=== PATIENT | male | born 1935 | race Caucasian/White ===

== ENCOUNTER 2020-04-11 15:13 | Inpatient (IN) | payer MEDICARE, OTHER ==
[2020-04-11] MEDS ORDERED: NORMAL SALINE IV ONE (15:46)
[2020-04-11] MEDS ORDERED: DEXTROSE 5%-WATER 250 ML with NOREPINEPHRINE BITARTRATE 4 MG IV PRN ×4 (15:46→18:56)
[2020-04-11] MEDS ORDERED: CEFEPIME INJ 1 GM VIAL IM ONE (15:46)
[2020-04-11] MEDS ORDERED: VANCOMYCIN HCL INJ 1000 MG VIAL IV ONE (15:46)
--- NOTE | 2020-04-11 15:54 | ER Document Report ---
ED General - General Chief Complaint: Low Blood Pressure Stated Complaint: GENERAL WEAKNESS Time Seen by Provider: 04/11/20 15:34 Primary Care Provider: FAWN DOMINGO [NO LOCAL MD] - Follow up as needed TRAVEL OUTSIDE OF THE [place] 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 He complains of mild generalized weakness. Notes that he has had some loose stools earlier today. Denies any blood in stools. Initial BP per EMS was 70 systolic. They have administered 1 L of lactated Ringer's during transport. Patient denies any loss of consciousness. Denies any focal weakness. Denies nausea vomiting. Denies headache. Denies cough or shortness of breath. Denies chest pain or abdominal pain. He denies any specific injury. Patient lives with his . He has had a CABG in the past. He specifically denies any chest pain or palpitations today. He denies any history of thromboembolic disease. He denies any recent surgery or travel. He denies any recent treatment and antibiotics. - Related Data Allergies/Adverse Reactions: No Known Allergies Allergy (Verified 04/11/20 15:49) Home Medications: aspirin, metformin, jardiance, pravastatin, protonix, synthroid, tamsulosin, zyrtec, sulfamethoxazole, telmisartin Past Medical History - General Information source: Patient, Emergency Med Personnel, [facility] Records - Social History Smoking Status: Never Smoker Frequency of alcohol use: None Drug Abuse: None Family History: Reviewed & Not Pertinent - Past Medical History Cardiac Medical History: Reports: Hx Coronary Artery Disease, Hx Hypertension Denies: Hx Pulmonary Embolism Pulmonary Medical History: Reports: None Neurological Medical History: Reports: None Renal/ Medical History: Reports: None Malignancy Medical History: Reports None Musculoskeletal Medical History: Reports Hx Arthritis Psychiatric Medical History: Reports: None Traumatic Medical History: Reports: None Past Surgical History: Reports: Hx Open Heart Surgery - CABG many years ago, Hx Orthopedic Surgery - Remote history of left knee replacement Review of Systems - Review of Systems Notes: Constitutional: Negative for fever. HENT: Negative for sore throat. Eyes: Negative for visual changes. Cardiovascular: Negative for chest pain. Respiratory: Negative for shortness of breath. Gastrointestinal: As per HPI. Genitourinary: Negative for dysuria. Musculoskeletal: Negative for back pain. Skin: Chronic skin rash in groin area. Neurological: Negative for headaches, focal weakness or numbness. 10 point ROS negative except as marked above and in HPI. Physical Exam - Vital signs Vitals: Temp 98.1 F 04/11/20 15:13 BP rechecked by me is 79/63 right arm with automated cuff - Notes Notes: GENERAL: Elderly male who is awake and alert. SKIN: Pale and cool to touch. Patient has prominent intertrigo in the groin area bilaterally. HEAD: Normocephalic atraumatic. EYES: PERRLA. EOMI. Conjunctivae and sclerae clear. EARS: CANALS AND TMS CLEAR. NOSE: CLEAR. MOUTH: Moist mucosa. Good dentition. No stridor or edema. No drooling. NECK: Supple. Nontender no masses or thyromegaly. No adenopathy. Carotids 2+ without bruits. No JVD. BACK: Symmetrical without tenderness. CHEST: Respirations unlabored. Breath sounds clear and symmetrical. HEART: Healed CABG scar present. Regular rhythm. No murmur gallop or rub. ABDOMEN: Soft mildly obese nontender without masses, organomegaly or rebound. Bowel sounds normally active. No bruits. GENITALIA: Normal male. Patient is wearing a diaper. EXTREMITIES: No edema. No calf tenderness. Cap refill less than 2 seconds. Dorsalis pedis and posterior tibial pulses 1+ and symmetrical. NEUROLOGICAL: GCS 15. Alert and oriented x3. Fluent speech. Cranial nerves II through XII intact. Sensorimotor and cerebellar normal. Normal tone. PSYCHIATRIC: Appropriate affect. Course - Re-evaluation Re-evalutation: 04/11/20 17:43 Patient has findings of acute kidney injury and associated metabolic acidosis and critical hyperkalemia. We are treating his hyperkalemia with IV glucose and insulin and oral Kayexalate and IV calcium gluconate and bicarb. Case has been discussed with Dr. Bazzi from critical care unit and he is excepted for admission. - Vital Signs Vital signs: Temp Pulse Resp BP Pulse Ox 97.9 F 19 109/75 98 04/11/20 16:00 04/11/20 16:45 04/11/20 16:45 04/11/20 16:45 - Laboratory Result Diagrams: 04/11/20 15:30 04/11/20 15:30 Laboratory results interpreted by me: 04/11/20 04/11/20 04/11/20 15:30 15:30 15:30 WBC 13.4 H RBC 4.14 L Hgb 12.9 L RDW 14.5 H Absolute Neuts (auto) 10.4 H VBG pH 7.26 L VBG pCO2 31.8 L VBG HCO3 13.8 L Sodium 135.0 L Potassium 7.6 H* Chloride 109 H Carbon Dioxide 12 L BUN 90 H Creatinine 4.26 H Est GFR ( Amer) 16 L Est GFR (MDRD) Non-Af 13 L POC Glucose Lactic Acid 04/11/20 04/11/20 15:30 16:59 WBC RBC Hgb RDW Absolute Neuts (auto) VBG pH VBG pCO2 VBG HCO3 Sodium Potassium Chloride Carbon Dioxide BUN Creatinine Est GFR ( Amer) Est GFR (MDRD) Non-Af POC Glucose 124 H Lactic Acid 3.3 H - EKG Interpretation by Me Additional EKG results interpreted by me: 04/11/20 15:59 Twelve-lead EKG from 1530 hrs. is reviewed contemporaneously by me demonstrating a normal sinus rhythm with a rate of 81 and a QRS axis of 263 degrees. There is a first-degree AV block present and right bundle branch block is noted. No acute ST/T wave changes. There is no old tracing for comparison. QT interval is normal. Indication for current study: Hypotension. Critical Care Note - Critical Care Note Total time excluding time spent on procedures (mins): 105 - Sepsis protocol initiated. Findings consistent with acute kidney injury and hyperkalemia. Discharge - Discharge Clinical Impression: Sepsis, Acute kidney injury, Hyperkalemia Condition: Critical Disposition: ADMITTED INPATIENT Admitting Provider: Kervin (In Home Baby Sitter) Unit Admitted: ICU Referrals: FAWN DOMINGO [NO LOCAL MD] - Follow up as needed
[2020-04-11] MEDS ORDERED: CEFEPIME 1 GM/D5W RTU 1 GM/50 ML RTUPB IV SCH (16:00)
[2020-04-11 16:02] LABS: VENOUS BLOOD BASE EXCESS -12.1 mmol/L; VENOUS BLOOD HCO3 13.8 mmol/L (20-32); VENOUS BLOOD PCO2 31.8 mmHg (35-63); VENOUS BLOOD PH 7.26 (7.30-7.42)
[2020-04-11 16:08] LABS: PROTHROMBIN TIME 15.3 SEC (11.4-15.4)
[2020-04-11] MEDS ORDERED: NOREPINEPHRINE BITARTRATE INJ/PF 4 MG/4 ML SDV IV ONE (16:10)
--- NOTE | 2020-04-11 16:15 | RADIOLOGY REPORT (SQ) ---
EXAM DESCRIPTION: CHEST SINGLE VIEW IMAGES COMPLETED DATE/TIME: 04/11/2020 4:06 pm REASON FOR STUDY: hyotension COMPARISON: None. NUMBER OF VIEWS: One view. TECHNIQUE: Single frontal radiographic view of the chest acquired. LIMITATIONS: Expiratory lung volumes. FINDINGS: LUNGS AND PLEURA: No pneumothorax. No consolidation or significant pleural effusion. MEDIASTINUM AND HILAR STRUCTURES: Contour within normal limits for technique and lung volume. HEART AND VASCULAR STRUCTURES: Heart upper limits of normal in size. Normal vasculature. Prior CABG. BONES: No acute findings. HARDWARE: CABG hardware. OTHER: No other significant finding. IMPRESSION: No acute findings identified.Expiratory lung volumes. TECHNICAL DOCUMENTATION: JOB ID: [id number] [place]-72 2010 [employer]- All Rights Reserved Reading location - IP/workstation name: [email or web address]
[2020-04-11 16:30] LABS: CREATINE KINASE MB 2.37 ng/mL (<4.55)
[2020-04-11 16:34] LABS: TROPONIN I 0.075 ng/mL
[2020-04-11 17:09] LABS: ABSOLUTE BASOPHILS # (AUTO) 0.1 10^3/uL (0.0-0.2); ABSOLUTE EOSINOPHILS # (AUTO) 0.1 10^3/uL (0.0-0.6); ABSOLUTE LYMPHOCYTES (AUTO) 2.1 10^3/uL (0.5-4.7); ABSOLUTE MONOCYTES (AUTO) 0.7 10^3/uL (0.1-1.4); ABSOLUTE NEUT (AUTO) 10.4 10^3/uL (1.7-8.2); BASOPHILS % (AUTO) 0.5 % (0-2); EOSINOPHILS % (AUTO) 0.7 % (0-6); HEMATOCRIT 39.5 % (37.9-51.0); HEMOGLOBIN 12.9 g/dL (13.5-17.0); LYMPHOCYTES % (AUTO) 15.3 % (13-45); MEAN CORPUSCULAR HEMOGLOBIN 31.1 pg (27.0-33.4); MEAN CORPUSCULAR HGB CONC 32.5 g/dL (32.0-36.0); MEAN CORPUSCULAR VOLUME 96 fl (80-97); MONOCYTES % (AUTO) 5.6 % (3-13); PLATELET COUNT 309 10^3/uL (150-450); RED BLOOD COUNT 4.14 10^6/uL (4.35-5.55); RED CELL DISTRIBUTION WIDTH 14.5 % (11.5-14.0); SEGMENTED NEUTROPHILS % (AUTO) 77.9 % (42-78); TOTAL CELLS COUNTED % (AUTO) 100 %; WHITE BLOOD COUNT 13.4 10^3/uL (4.0-10.5)
[2020-04-11 17:15] LABS: ALKALINE PHOSPHATASE 69 U/L (38-126); ANION GAP 14 (5-19); ASPARTATE AMINO TRANSFERASE 20 U/L (17-59); BILIRUBIN,DIRECT 0.2 mg/dL (0.0-0.4); BILIRUBIN,TOTAL 0.8 mg/dL (0.2-1.3); BLOOD UREA NITROGEN 90 mg/dL (7-20); CALCIUM 9.5 mg/dL (8.4-10.2); CARBON DIOXIDE 12 mmol/L (22-30); CHLORIDE 109 mmol/L (98-107); CREATINE KINASE 60 U/L (55-170); GLUCOSE 100 mg/dL (75-110); TOTAL PROTEIN 7.7 g/dL (6.3-8.2)
[2020-04-11 17:16] LABS: ALCOHOL < 10 mg/dL (NONE DETECTED)
[2020-04-11 17:19] LABS: POTASSIUM 7.6 mmol/L (3.6-5.0)
--- NOTE | 2020-04-11 17:20 | EKG REPORT ---
SEVERITY:- ABNORMAL ECG - SINUS OR ECTOPIC ATRIAL RHYTHM RIGHT BUNDLE BRANCH BLOCK : Confirmed by: Milla Pino MD 11-Apr-2020 17:20:00
[2020-04-11] MEDS ORDERED: DEXTROSE 50%-WATER 25 GM/50 ML DISP.SYRIN IV ONE (17:32)
[2020-04-11] MEDS ORDERED: CALCIUM GLUCONATE 1000 MG/10 ML INJ IV ONE (17:32)
[2020-04-11] MEDS ORDERED: INSULIN REG, HUMAN 100 UNIT/ML 3 ML VIAL (PYX) IV ONE (17:32)
[2020-04-11] MEDS ORDERED: SODIUM POLYSTYRENE SULFONATE 15 GM/60 ML PO ONE (17:32)
[2020-04-11 18:30] LABS: ANION GAP 11 (5-19); BLOOD UREA NITROGEN 88 mg/dL (7-20); CALCIUM 8.7 mg/dL (8.4-10.2); CARBON DIOXIDE 15 mmol/L (22-30); CHLORIDE 109 mmol/L (98-107); GLUCOSE 133 mg/dL (75-110)
[2020-04-11 18:33] LABS: POTASSIUM 7.1 mmol/L (3.6-5.0)
[2020-04-11 18:44] LABS: APPEARANCE,URINE TURBID; BILIRUBIN,URINE NEGATIVE (NEGATIVE); COLOR,URINE YELLOW; GLUCOSE, URINE 150 mg/dL (NEGATIVE); KETONES,URINE NEGATIVE (NEGATIVE); LEUKOCYTE ESTERASE,URINE LARGE (NEGATIVE); NITRITE,URINE NEGATIVE (NEGATIVE); PROTEIN,URINE 100 mg/dL (NEGATIVE); URINE SPECIFIC GRAVITY 1.011; UROBILINOGEN,URINE NEGATIVE mg/dL (<2.0)
[2020-04-11] MEDS ORDERED: ACETAMINOPHEN 325 MG TABLET PO PRN (18:48)
[2020-04-11] MEDS ORDERED: NORMAL SALINE 1000 ML 1,000 ML IV PRN (18:48)
--- NOTE | 2020-04-11 19:08 | RADIOLOGY REPORT (SQ) ---
EXAM DESCRIPTION: CT ABD/PELVIS NO ORAL OR IV IMAGES COMPLETED DATE/TIME: 04/11/2020 6:44 pm REASON FOR STUDY: EDELMIRA COMPARISON: None. TECHNIQUE: CT scan of the abdomen and pelvis performed without intravenous or oral contrast. Images reviewed with lung, soft tissue, and bone windows. Reconstructed coronal and sagittal MPR images revi ewed. All images stored on PACS. All CT scanners at this facility use dose modulation, iterative reconstruction, and/or weight based d osing when appropriate to reduce radiation dose to as low as reasonably achievable (ALARA). [facility]: Dose Right [facility]: CareDose [facility]: Dose Right [facility]: Teradose 4D [facility]: [employer] RADIATION DOSE: CT Rad equipment meets quality standard of care and radiation dose reduction techniq ues were employed. CTDIvol: 18.3 mGy. DLP: 1125 mGy-cm.mGy. LIMITATIONS: None. FINDINGS: LOWER CHEST: 1.4 cm nodule in the subpleural - anterior aspect of the right middle lobe. Mild basilar scarring -subsegmental atelectasis bilaterally. Prior CABG. NON-CONTRASTED LIVER, SPLEEN, ADRENALS: Evaluation limited by lack of IV contrast. No identified sign ificant masses. PANCREAS: No masses. No peripancreatic inflammatory changes. GALLBLADDER: No calcified stones. No inflammatory changes to suggest cholecystitis. RIGHT KIDNEY AND URETER: No cysts identified. 10 mm calcified stone in the upper pole parenchyma. Mi nimal hydronephrosis - hydroureter. LEFT KIDNEY AND URETER: No cysts identified. 5 mm calcified stone in the lower pole parenchyma. Mini mal hydronephrosis - hydroureter. AORTA AND RETROPERITONEUM: No aneurysm. No retroperitoneal masses or adenopathy. BOWEL AND PERITONEAL CAVITY: No obvious masses or inflammatory changes. No free fluid. APPENDIX: Not visualized. PELVIS, BLADDER, AND ABDOMINAL WALL:No free fluid. Mild thickening of the bladder wall. BONES: No acute findings. OTHER: No other significant finding. IMPRESSION: Mild thickening of the bladder wall.Minimal bilateral hydronephrosis - hydroureter. No calcified ureteral stones identified. The bilateral calcified nephrolithiasis. 1.4 cm nodule in the subpleural - anterior aspect of the right middle lobe. Mild basilar scarring -s ubsegmental atelectasis bilaterally. TECHNICAL DOCUMENTATION: JOB ID: [id number] [place]-72 Quality ID # [id number]: Final reports with documentation of one or more dose reduction techniques (e.g., Au tomated exposure control, adjustment of the mA and/or kV according to patient size, use of iterative reconstruction technique) 2010 [employer]- All Rights Reserved Reading location - IP/workstation name: [email or web address]
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
[2020-04-11] MEDS ORDERED: NORMAL SALINE 1000 ML 500 ML IV ONE ×2 (20:30→22:34)
[2020-04-11] MEDS ORDERED: CEFTRIAXONE SODIUM 1,000 MG in DEXTROSE 5%-WATER 100 ML IV SCH (22:00)
[2020-04-11 22:15] LABS: ALBUMIN 3.4 g/dL (3.5-5.0); ALKALINE PHOSPHATASE 71 U/L (38-126); ANION GAP 11 (5-19); ASPARTATE AMINO TRANSFERASE 15 U/L (17-59); BILIRUBIN,DIRECT 0.2 mg/dL (0.0-0.4); BILIRUBIN,TOTAL 0.7 mg/dL (0.2-1.3); BLOOD UREA NITROGEN 82 mg/dL (7-20); CALCIUM 8.9 mg/dL (8.4-10.2); CARBON DIOXIDE 11 mmol/L (22-30); CHLORIDE 115 mmol/L (98-107); GLUCOSE 74 mg/dL (75-110); TOTAL PROTEIN 6.7 g/dL (6.3-8.2)
[2020-04-11 22:24] LABS: POTASSIUM 5.6 mmol/L (3.6-5.0)
[2020-04-11] MEDS ORDERED: CEFTRIAXONE 1 GM/D5W RTU 1 GM/50 ML RTUPB IV ONE (22:26)
[2020-04-11] MEDS: 1/2 NORMAL SALINE 1,000 ML IV PRN (23:48)
[2020-04-12] MEDS ORDERED: LIDOCAINE 2% JELLY 5 ML TUBE TOP ONE (01:15)
[2020-04-12] MEDS ORDERED: LIDOCAINE 2% URO-JET 5 ML KIT MM ONE (02:36)
[2020-04-12 03:22] LABS: C DIFFICILE GDH NEGATIVE (NEGATIVE)
[2020-04-12 04:55] LABS: ABSOLUTE BASOPHILS # (AUTO) 0.1 10^3/uL (0.0-0.2); ABSOLUTE EOSINOPHILS # (AUTO) 0.2 10^3/uL (0.0-0.6); ABSOLUTE LYMPHOCYTES (AUTO) 2.1 10^3/uL (0.5-4.7); ABSOLUTE MONOCYTES (AUTO) 1.1 10^3/uL (0.1-1.4); ABSOLUTE NEUT (AUTO) 8.5 10^3/uL (1.7-8.2); BASOPHILS % (AUTO) 0.5 % (0-2); EOSINOPHILS % (AUTO) 1.3 % (0-6); LYMPHOCYTES % (AUTO) 17.8 % (13-45); MEAN CORPUSCULAR HEMOGLOBIN 31.6 pg (27.0-33.4); MEAN CORPUSCULAR HGB CONC 33.4 g/dL (32.0-36.0); MEAN CORPUSCULAR VOLUME 95 fl (80-97); MONOCYTES % (AUTO) 9.5 % (3-13); PLATELET COUNT 254 10^3/uL (150-450); RED BLOOD COUNT 4.11 10^6/uL (4.35-5.55); SEGMENTED NEUTROPHILS % (AUTO) 70.9 % (42-78); TOTAL CELLS COUNTED % (AUTO) 100 %
[2020-04-12] MEDS ORDERED: DIPHENOXYLATE HCL/ATROP SULF 2.5-0.025 MG TABLET PO ONE (05:15)
[2020-04-12 05:19] LABS: ALBUMIN 3.4 g/dL (3.5-5.0); ALKALINE PHOSPHATASE 71 U/L (38-126); ANION GAP 11 (5-19); ASPARTATE AMINO TRANSFERASE 16 U/L (17-59); BILIRUBIN,TOTAL 0.7 mg/dL (0.2-1.3); BLOOD UREA NITROGEN 79 mg/dL (7-20); CALCIUM 9.1 mg/dL (8.4-10.2); CARBON DIOXIDE 13 mmol/L (22-30); CHLORIDE 113 mmol/L (98-107); GLUCOSE 79 mg/dL (75-110); POTASSIUM 5.4 mmol/L (3.6-5.0)
[2020-04-12] MEDS: PANTOPRAZOLE SODIUM 40 MG TABLET.DR PO SCH (06:05)
[2020-04-12] MEDS: 1/2 NORMAL SALINE 1,000 ML IV PRN ×2 (07:33→18:11)
--- NOTE | 2020-04-12 08:53 | PDOC CRITICAL CARE PROG REPORT ---
General Date:: 04/12/20 ICU Day:: 2 Hospital Day:: 2 Resuscitation Status: Do Not Intubate Events in the past 12 to 24 Hours:: Off levophed, potassium lower, hypoadrenal. Reason for ICU Addmission:: Hypotension, hyperkalemia. - Medications: Medications reviewed and adjusted accordingly: Yes Vasopressors:: None, off levophed. Sedation:: None. Physical Exam Vital Signs: Temp Pulse Resp BP Pulse Ox 97.9 F 91 19 110/57 L 100 04/12/20 04:00 04/11/20 20:28 04/12/20 06:01 04/12/20 06:00 04/12/20 06:01 Intake & Output 04/11/20 04/12/20 04/13/20 06:59 06:59 06:59 Intake Total 4406 969 Output Total 1450 Balance 2956 969 Weight 101.9 kg Weight/Height Weight 101.9 kg Height 5 ft 6 in General appearance: PRESENT: no acute distress, hard of hearing, well-developed, well-nourished Head exam: PRESENT: atraumatic, normocephalic Eye exam: PRESENT: conjunctiva pink, EOMI, PERRLA. ABSENT: scleral icterus Ear exam: PRESENT: normal external ear exam Mouth exam: PRESENT: moist, tongue midline Respiratory exam: PRESENT: clear to auscultation chito. ABSENT: rales, rhonchi, wheezes Cardiovascular exam: PRESENT: RRR. ABSENT: diastolic murmur, rubs, systolic murmur GI/Abdominal exam: PRESENT: normal bowel sounds, soft. ABSENT: distended, guarding, mass, organolmegaly, rebound, tenderness Rectal exam: PRESENT: deferred Extremities exam: PRESENT: full ROM. ABSENT: calf tenderness, clubbing, pedal edema Musculoskeletal exam: PRESENT: normal inspection Neurological exam: PRESENT: alert, awake, oriented to person, oriented to place, oriented to time, oriented to situation, CN II-XII grossly intact. ABSENT: motor sensory deficit Psychiatric exam: PRESENT: appropriate affect, normal mood. ABSENT: homicidal ideation, suicidal ideation Skin exam: PRESENT: dry, intact, warm. ABSENT: cyanosis, rash Laboratory/Radiographs Laboratory Results: 04/12/20 04:25 04/12/20 04:25 04/11/20 04/11/20 04/11/20 15:30 15:30 15:30 WBC 13.4 H RBC 4.14 L Hgb 12.9 L Hct 39.5 MCV 96 MCH 31.1 MCHC 32.5 RDW 14.5 H Plt Count 309 Seg Neutrophils % 77.9 VBG pH 7.26 L VBG pCO2 31.8 L VBG HCO3 13.8 L VBG Base Excess -12.1 Sodium 135.0 L Potassium 7.6 H* Chloride 109 H Carbon Dioxide 12 L Anion Gap 14 BUN 90 H Creatinine 4.26 H Est GFR ( Amer) 16 L Glucose 100 Lactic Acid Calcium 9.5 Magnesium Total Bilirubin 0.8 AST 20 Alkaline Phosphatase 69 Total Protein 7.7 Albumin 4.0 TSH Urine Color Urine Appearance Urine pH Ur Specific [place] Urine Protein Urine Glucose (UA) Urine Ketones Urine Blood Urine Nitrite Ur Leukocyte Esterase Urine WBC (Auto) Urine RBC (Auto) Stool for White Cells 04/11/20 04/11/20 04/11/20 15:30 17:55 18:10 WBC RBC Hgb Hct MCV MCH MCHC RDW Plt Count Seg Neutrophils % VBG pH VBG pCO2 VBG HCO3 VBG Base Excess Sodium 134.6 L Potassium 7.1 H* Chloride 109 H Carbon Dioxide 15 L Anion Gap 11 BUN 88 H Creatinine 3.97 H Est GFR ( Amer) 18 L Glucose 133 H Lactic Acid 3.3 H Calcium 8.7 Magnesium Total Bilirubin AST Alkaline Phosphatase Total Protein Albumin TSH Urine Color YELLOW Urine Appearance TURBID Urine pH 5.0 Ur Specific [place] 1.011 Urine Protein 100 H Urine Glucose (UA) 150 H Urine Ketones NEGATIVE Urine Blood LARGE H Urine Nitrite NEGATIVE Ur Leukocyte Esterase LARGE H Urine WBC (Auto) >182 Urine RBC (Auto) >182 Stool for White Cells 04/11/20 04/11/20 04/11/20 18:56 21:40 21:40 WBC RBC Hgb Hct MCV MCH MCHC RDW Plt Count Seg Neutrophils % VBG pH VBG pCO2 VBG HCO3 VBG Base Excess Sodium 137.0 Potassium 5.6 H D Chloride 115 H Carbon Dioxide 11 L Anion Gap 11 BUN 82 H Creatinine 3.91 H Est GFR ( Amer) 18 L Glucose 74 L Lactic Acid 1.2 1.2 Calcium 8.9 Magnesium 1.8 Total Bilirubin 0.7 AST 15 L Alkaline Phosphatase 71 Total Protein 6.7 Albumin 3.4 L TSH Urine Color Urine Appearance Urine pH Ur Specific [place] Urine Protein Urine Glucose (UA) Urine Ketones Urine Blood Urine Nitrite Ur Leukocyte Esterase Urine WBC (Auto) Urine RBC (Auto) Stool for White Cells 04/11/20 04/11/20 04/12/20 21:40 22:00 04:25 WBC 12.0 H RBC 4.11 L Hgb 13.0 L Hct 39.0 MCV 95 MCH 31.6 MCHC 33.4 RDW 14.0 Plt Count 254 Seg Neutrophils % 70.9 VBG pH VBG pCO2 VBG HCO3 VBG Base Excess Sodium Potassium Chloride Carbon Dioxide Anion Gap BUN Creatinine Est GFR ( Amer) Glucose Lactic Acid Calcium Magnesium Total Bilirubin AST Alkaline Phosphatase Total Protein Albumin TSH 2.40 Urine Color Urine Appearance Urine pH Ur Specific [place] Urine Protein Urine Glucose (UA) Urine Ketones Urine Blood Urine Nitrite Ur Leukocyte Esterase Urine WBC (Auto) Urine RBC (Auto) Stool for White Cells NO WBCs SEEN 04/12/20 04:25 WBC RBC Hgb Hct MCV MCH MCHC RDW Plt Count Seg Neutrophils % VBG pH VBG pCO2 VBG HCO3 VBG Base Excess Sodium 137.2 Potassium 5.4 H Chloride 113 H Carbon Dioxide 13 L Anion Gap 11 BUN 79 H Creatinine 3.38 H Est GFR ( Amer) 21 L Glucose 79 Lactic Acid Calcium 9.1 Magnesium 1.8 Total Bilirubin 0.7 AST 16 L Alkaline Phosphatase 71 Total Protein 7.0 Albumin 3.4 L TSH Urine Color Urine Appearance Urine pH Ur Specific [place] Urine Protein Urine Glucose (UA) Urine Ketones Urine Blood Urine Nitrite Ur Leukocyte Esterase Urine WBC (Auto) Urine RBC (Auto) Stool for White Cells 04/11/20 04/11/20 04/11/20 15:30 15:30 21:40 Creatine Kinase 60 CK-MB (CK-2) 2.37 Troponin I 0.075 0.072 Impressions: Chest X-Ray 04/11/20 15:47 IMPRESSION: No acute findings identified.Expiratory lung volumes. Abdomen/Pelvis CT 04/11/20 17:34 IMPRESSION: Mild thickening of the bladder wall.Minimal bilateral hydronephrosis - hydroureter. No calcified ureteral stones identified. The bilateral calcified nephrolithiasis. 1.4 cm nodule in the subpleural - anterior aspect of the right middle lobe. Mild basilar scarring -subsegmental atelectasis bilaterally. EKG: SR, no peaked T-waves. All labs, radiographs, diagnostic studies and EKGs were personally reviewed: Yes In addition, reports of radiographic and diagnostic studies were read: Yes Assessment and Plan - Diagnosis (1) Hypovolemic shock Is this a current diagnosis for this admission?: Yes Plan: This was due to a combination of hypoadrenalism and hypovolemia from diarrhea and not drinking enough. Improved but not resolved. (2) Hypoadrenalism Is this a current diagnosis for this admission?: Yes Plan: With a cortisol of < 8, he needs supplementation at least short term. PO hydrocortisone ordered. (3) Acute renal failure (ARF) Qualifiers: Acute renal failure type: unspecified Qualified Code(s): N17.9 - Acute kidney failure, unspecified Is this a current diagnosis for this admission?: Yes Plan: GFR still only 17 with Cr improved from 4.3 to 3.4. For an 84 yo mas this is quite high. Will consult nephrology to follow. CT exam shows atrophied kidneys, likely chronic. (4) Diarrhea Qualifiers: Diarrhea type: unspecified type Qualified Code(s): R19.7 - Diarrhea, unspe cified Is this a current diagnosis for this admission?: Yes Plan: Cause not known. Cdif negative thus far. Other studies pending, lomotil ordered. (5) Hyperkalemia Is this a current diagnosis for this admission?: Yes Plan: Level still above 5 but quite improved. (6) Right bundle branch block Is this a current diagnosis for this admission?: Yes Plan: Probably chronic and not related to hyperkalemia. Plan Summary: Start PO hydrocortisone, consult nephrology and transfer from ICU if stable later today. Critical Time Critical Time (minutes): 35 Level of Care: ICU Anticipated discharge: Home with Homehealth Within: Other -: 1. The care of a critical patient is a dynamic process. This note is a service center representative synopsis but static in nature. The timeframe for treatments given in order is not necessarily the actual time these treatments may have been done. 2. This patient requires critical care secondary to ongoing requirements for therapy not offered or safe outside the critical care environment. Transfer to a lower level of care will result in altered life or limb morbidity and mortality. 3. Multidisciplinary rounds completed. 4. ABCDE bundle addressed.
[2020-04-12] MEDS: DIPHENOXYLATE HCL/ATROP SULF 2.5-0.025 MG TABLET PO SCH ×3 (10:00→17:18)
[2020-04-12] MEDS ORDERED: LOSARTAN POTASSIUM 50 MG TABLET PO SCH (10:00)
[2020-04-12] MEDS ORDERED: (PENDING PHARMACY ID) (Telmisartan [Telmisartan] 40 MG) PO SCH (10:00)
[2020-04-12] MEDS: HYDROCORTISONE 10 MG TABLET PO SCH ×2 (10:01→21:15)
--- NOTE | 2020-04-12 11:31 | CDI QUERY ---
CDI Query CDI Review: Dear Provider, Please document in progress notes and D/C summary if you agree with the clinical findings: ACUTE KIDNEY INJURY W/ ACUTE TUBULAR NECROSIS, improving? ACUTE KIDNEY INJURY ONLY? UNABLE TO DETERMINE Clinical findings: ACUTE KIDNEY INJURY HYPOVOLEMIC SHOCK Cr 4.26-3.38 BUN 90-79 IVF's Thanks, Chantell Steven [phone]
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
[2020-04-12] MEDS: SODIUM BICARBONATE 650 MG TABLET PO SCH ×2 (14:12→21:16)
[2020-04-12 15:37] LABS: ANION GAP 9 (5-19); BLOOD UREA NITROGEN 66 mg/dL (7-20); CARBON DIOXIDE 15 mmol/L (22-30); CHLORIDE 113 mmol/L (98-107); GLUCOSE 106 mg/dL (75-110); POTASSIUM 5.5 mmol/L (3.6-5.0)
--- NOTE | 2020-04-12 17:52 | EKG REPORT ---
SEVERITY:- ABNORMAL ECG - A-FLUTTER W/ PREDOM 2:1 AV BLOCK, A-RATE 250 RIGHT BUNDLE BRANCH BLOCK PROBABLE INFERIOR INFARCT, AGE INDETERMINATE : Confirmed by: David Ivan MD 12-Apr-2020 17:51:34
[2020-04-12] MEDS: CEFTRIAXONE 1 GM/D5W RTU 1 GM/50 ML RTUPB IV SCH (21:16)
[2020-04-13] MEDS: 1/2 NORMAL SALINE 1,000 ML IV PRN (02:15)
[2020-04-13 04:28] LABS: ANION GAP 7 (5-19); BLOOD UREA NITROGEN 56 mg/dL (7-20); CALCIUM 8.9 mg/dL (8.4-10.2); CARBON DIOXIDE 17 mmol/L (22-30); CHLORIDE 110 mmol/L (98-107); GLUCOSE 103 mg/dL (75-110); POTASSIUM 5.1 mmol/L (3.6-5.0)
[2020-04-13] MEDS: PANTOPRAZOLE SODIUM 40 MG TABLET.DR PO SCH (05:41)
[2020-04-13] MEDS: HYDROCORTISONE 10 MG TABLET PO SCH ×2 (10:00→21:49)
[2020-04-13] MEDS: SODIUM BICARBONATE 650 MG TABLET PO SCH ×2 (10:01→21:49)
--- NOTE | 2020-04-13 12:45 | PDOC CRITICAL CARE PROG REPORT ---
General Date:: 04/13/20 Hospital Day:: 2 Resuscitation Status: Do Not Intubate Events in the past 12 to 24 Hours:: Renal function improving, diarreah less. Review of systems relevant to events:: Renal, gi Reason for ICU Addmission:: Hypotension, hyperkalemia. All resolved. - Medications: Medications reviewed and adjusted accordingly: Yes Vasopressors:: None Sedation:: None Physical Exam Vital Signs: Temp Pulse Resp BP Pulse Ox 98.4 F 83 15 116/73 99 04/13/20 12:00 04/13/20 08:00 04/13/20 10:01 04/13/20 10:01 04/13/20 10:01 Intake & Output 04/12/20 04/13/20 04/14/20 06:59 06:59 06:59 Intake Total 4406 2969 480 Output Total 1450 4505 1175 Balance 2956 -1536 -695 Weight 101.9 kg 102.4 kg Weight/Height Weight 102.4 kg Height 5 ft 6 in General appearance: PRESENT: no acute distress, well-developed, well-nourished Head exam: PRESENT: atraumatic, normocephalic Eye exam: PRESENT: conjunctiva pink, EOMI, PERRLA. ABSENT: scleral icterus Ear exam: PRESENT: normal external ear exam Mouth exam: PRESENT: moist, tongue midline Respiratory exam: PRESENT: clear to auscultation chito. ABSENT: rales, rhonchi, wheezes Cardiovascular exam: PRESENT: RRR. ABSENT: diastolic murmur, rubs, systolic murmur Pulses: PRESENT: normal dorsalis pedis pul GI/Abdominal exam: PRESENT: normal bowel sounds, soft. ABSENT: distended, guarding, mass, organolmegaly, rebound, tenderness Rectal exam: PRESENT: deferred Gentrourinary exam: PRESENT: indwelling catheter Extremities exam: PRESENT: full ROM. ABSENT: calf tenderness, clubbing, pedal edema Musculoskeletal exam: PRESENT: normal inspection Neurological exam: PRESENT: alert, awake, oriented to person, oriented to place, oriented to time, oriented to situation, CN II-XII grossly intact. ABSENT: motor sensory deficit Psychiatric exam: PRESENT: appropriate affect, normal mood. ABSENT: homicidal ideation, suicidal ideation Skin exam: PRESENT: dry, intact, warm. ABSENT: cyanosis, rash Laboratory/Radiographs Laboratory Results: 04/12/20 04:25 04/13/20 04:01 04/12/20 04/13/20 15:08 04:01 Sodium 137.3 133.5 L Potassium 5.5 H 5.1 H Chloride 113 H 110 H Carbon Dioxide 15 L 17 L Anion Gap 9 7 BUN 66 H 56 H Creatinine 2.61 H 1.91 H Est GFR ( Amer) 28 L 41 L Glucose 106 103 Calcium 9.0 8.9 04/11/20 15:30 Blood Blood Culture (PCR) - Final Enterococcus Species 04/11/20 18:10 Clean Catch Midstream Urine Culture - Final NO GROWTH 2 DAYS 04/11/20 04/11/20 04/11/20 15:30 15:30 21:40 Creatine Kinase 60 CK-MB (CK-2) 2.37 Troponin I 0.075 0.072 Impressions: Chest X-Ray 04/11/20 15:47 IMPRESSION: No acute findings identified.Expiratory lung volumes. Abdomen/Pelvis CT 04/11/20 17:34 IMPRESSION: Mild thickening of the bladder wall.Minimal bilateral hydronephrosis - hydroureter. No calcified ureteral stones identified. The bilateral calcified nephrolithiasis. 1.4 cm nodule in the subpleural - anterior aspect of the right middle lobe. Mild basilar scarring -subsegmental atelectasis bilaterally. All labs, radiographs, diagnostic studies and EKGs were personally reviewed: Yes In addition, reports of radiographic and diagnostic studies were read: Yes Assessment and Plan - Diagnosis (1) Hypovolemic shock Is this a current diagnosis for this admission?: Yes Plan: Resolved (2) Hypoadrenalism Is this a current diagnosis for this admission?: Yes Plan: On steroids. (3) Acute renal failure (ARF) Qualifiers: Acute renal failure type: unspecified Qualified Code(s): N17.9 - Acute kidney failure, unspecified Is this a current diagnosis for this admission?: Yes Plan: His renal failure is improving. This was likely ARF due to acute tubular necrosis. His baseline CR is about .9-1.0. Today he is 1.9 and making about 200 cc of urine/hour. Will stop IV as he is eating and drinking well. If Cr close to baseline by Wed will send home. (4) Diarrhea Qualifiers: Diarrhea type: unspecified type Qualified Code(s): R19.7 - Diarrhea, unspecified Is this a current diagnosis for this admission?: Yes Plan: No positive cultures yet. (5) Hyperkalemia Is this a current diagnosis for this admission?: Yes Plan: Resolved (6) Right bundle branch block Is this a current diagnosis for this admission?: Yes Plan: Chronic Plan Summary: If Cr close to baseline by AM, discharge home. Critical Time Critical Time (minutes): 20 Level of Care: MEDICAL Anticipated discharge: Home Within: within 24 hours -: 1. The care of a critical patient is a dynamic process. This note is a food service representative synopsis but static in nature. The timeframe for treatments given in order is not necessarily the actual time these treatments may have been done. 2. This patient requires critical care secondary to ongoing requirements for therapy not offered or safe outside the critical care environment. Transfer to a lower level of care will result in altered life or limb morbidity and mortality. 3. Multidisciplinary rounds completed. 4. ABCDE bundle addressed.
[2020-04-13] MEDS: CEFTRIAXONE 1 GM/D5W RTU 1 GM/50 ML RTUPB IV SCH (21:49)
[2020-04-13] MEDS ORDERED: DEXTROSE 40% GEL 15 GM TUBE PO PRN ×2 (22:25)
[2020-04-13] MEDS ORDERED: GLUCAGON,HUMAN RECOMB 1 MG INJ IM PRN (22:25)
[2020-04-13] MEDS ORDERED: DEXTROSE 50%-WATER 25 GM/50 ML DISP.SYRIN IV PRN ×2 (22:25)
[2020-04-14] MEDS ORDERED: METOPROLOL TARTRATE PF/INJ 5 MG/5 ML SDV IV PRN (01:37)
[2020-04-14] MEDS ORDERED: METOPROLOL TARTRATE PF/INJ 5 MG/5 ML SDV IV ONE (01:41)
[2020-04-14 04:08] LABS: HEMATOCRIT 38.7 % (37.9-51.0); HEMOGLOBIN 13.3 g/dL (13.5-17.0); MEAN CORPUSCULAR HEMOGLOBIN 31.9 pg (27.0-33.4); MEAN CORPUSCULAR HGB CONC 34.4 g/dL (32.0-36.0); MEAN CORPUSCULAR VOLUME 93 fl (80-97); PLATELET COUNT 249 10^3/uL (150-450); RED BLOOD COUNT 4.17 10^6/uL (4.35-5.55); RED CELL DISTRIBUTION WIDTH 13.7 % (11.5-14.0); WHITE BLOOD COUNT 12.5 10^3/uL (4.0-10.5)
[2020-04-14 04:27] LABS: CARBON DIOXIDE 19 mmol/L (22-30); CHLORIDE 111 mmol/L (98-107)
[2020-04-14 04:36] LABS: ANION GAP 8 (5-19); BLOOD UREA NITROGEN 45 mg/dL (7-20); CALCIUM 9.3 mg/dL (8.4-10.2); GLUCOSE 131 mg/dL (75-110); POTASSIUM 4.5 mmol/L (3.6-5.0)
[2020-04-14] MEDS: PANTOPRAZOLE SODIUM 40 MG TABLET.DR PO SCH (06:45)
[2020-04-14] MEDS: INSULIN REG, HUMAN 100 UNIT/ML 3 ML VIAL (PYX) SUBCUT SCH ×2 (09:30→11:33)
[2020-04-14 09:31] LABS: APPEARANCE,URINE CLOUDY; BILIRUBIN,URINE NEGATIVE (NEGATIVE); COLOR,URINE RED; GLUCOSE, URINE >=500 mg/dL (NEGATIVE); KETONES,URINE NEGATIVE (NEGATIVE); LEUKOCYTE ESTERASE,URINE TRACE (NEGATIVE); NITRITE,URINE NEGATIVE (NEGATIVE); PROTEIN,URINE 100 mg/dL (NEGATIVE); URINE SPECIFIC GRAVITY 1.012; UROBILINOGEN,URINE NEGATIVE mg/dL (<2.0)
[2020-04-14] MEDS: SODIUM BICARBONATE 650 MG TABLET PO SCH (09:31)
[2020-04-14] MEDS: HYDROCORTISONE 10 MG TABLET PO SCH (09:32)
[2020-04-14 09:35] LABS: ADD MANUAL MICROSCOPIC YES
[2020-04-14 09:36] LABS: BACTERIA,URINE 2+ /HPF; RBC,URINE TOO NUMEROUS TO CNT /HPF
--- NOTE | 2020-04-14 11:43 | PDOC DISCHARGE SUMMARY ---
Impression - Admit/DC Date/PCP Admission Date/Primary Care Provider: 04/11/20 17:54 Discharge Date: 04/14/20 - Discharge Diagnosis (1) Hypovolemic shock Is this a current diagnosis for this admission?: Yes (2) Hypoadrenalism Is this a current diagnosis for this admission?: Yes (3) Acute renal failure (ARF) Is this a current diagnosis for this admission?: Yes (4) Diarrhea Is this a current diagnosis for this admission?: Yes (5) Hyperkalemia Is this a current diagnosis for this admission?: Yes (6) Right bundle branch block Is this a current diagnosis for this admission?: Yes - Additional Information Resuscitation Status: Do Not Intubate Discharge Diet: Regular Discharge Activity: Activity As Tolerated Referrals: FAWN DAY [NO LOCAL MD] - Follow up as needed Home Medications: Aspirin [Ecotrin 81 mg EC Tablet] 81 mg PO DAILY 04/12/20 Cetirizine HCl 10 mg PO DAILY 04/12/20 Empagliflozin [Jardiance] 25 mg PO DAILY 04/12/20 Hydrochlorothiazide [Hydrodiuril 25 mg Tablet] 25 mg PO DAILY 04/12/20 Levothyroxine Sodium [Unithroid] 88 mcg PO Q6AM 04/12/20 Metformin HCl 1,000 mg PO BIDACBS 04/12/20 Metoprolol Tartrate [Lopressor 50 mg Tablet] 50 mg PO DAILY 04/12/20 Pantoprazole Sodium 40 mg PO DAILY 04/12/20 Pravastatin Sodium 80 mg PO QHS 04/12/20 Tamsulosin HCl [Flomax 0.4 mg Cap.sr] 0.4 mg PO DAILY 04/12/20 Telmisartan 40 mg PO DAILY 04/12/20 History of Present Illiness History of Present Illness: MAISHA SALAZAR is a 84 year old male who has BPH and came to the ED with obstructive uropathy, ARF, EDELMIRA and K of 7.1. He was given a gunter and insulin, D50, calcium. His potassium has dropped to 4.5. His CR was 4.2 initially and he was maintained in the ICU. Downgraded to floor status 2 days ago. Hospital Course Hospital Course: His CR has gone to 1.6. His baseline is .9-1. He was seen by Dr. Hernandez who has since signed off. His potassium is normal. I have spoken to Dr. Fawn Day, urologist, who states home with a gunter and leg bag and OP follow up with Dr. David Haynes. He does have some hematuria, without clots which apparently is common with a post obstructive diuresis, which he had. Physical Exam Vital Signs: Temp Pulse Resp BP Pulse Ox 98.4 F 102 H 30 H 113/60 100 04/14/20 08:00 04/14/20 08:00 04/14/20 10:30 04/14/20 10:30 04/14/20 10:30 Intake & Output 04/13/20 04/14/20 04/15/20 06:59 06:59 06:59 Intake Total 3019 1770 100 Output Total 4505 2775 560 Balance -1486 -1005 -460 Weight 102.4 kg General appearance: PRESENT: no acute distress, cooperative, hard of hearing, obese Head exam: PRESENT: atraumatic, normocephalic Eye exam: PRESENT: conjunctiva pink, EOMI, PERRLA. ABSENT: scleral icterus Ear exam: PRESENT: normal external ear exam Mouth exam: PRESENT: moist, tongue midline Respiratory exam: PRESENT: clear to auscultation chito. ABSENT: rales, rhonchi, wheezes Cardiovascular exam: PRESENT: RRR, tachycardia - With activity. ABSENT: diastolic murmur, rubs, systolic murmur GI/Abdominal exam: PRESENT: normal bowel sounds, soft. ABSENT: distended, guarding, mass, organolmegaly, rebound, tenderness Rectal exam: PRESENT: deferred Gentrourinary exam: PRESENT: indwelling catheter - With some hematuria. Extremities exam: PRESENT: full ROM. ABSENT: calf tenderness, clubbing, pedal edema Musculoskeletal exam: PRESENT: ambulatory, normal inspection Neurological exam: PRESENT: alert, awake, oriented to person, oriented to place, oriented to time, oriented to situation, CN II-XII grossly intact. ABSENT: motor sensory deficit Psychiatric exam: PRESENT: appropriate affect, normal mood. ABSENT: homicidal ideation, suicidal ideation Skin exam: PRESENT: dry, intact, warm. ABSENT: cyanosis, rash Results Laboratory Results: WBC 12.5 10^3/uL (4.0-10.5) H 04/14/20 04:00 RBC 4.17 10^6/uL (4.35-5.55) L 04/14/20 04:00 Hgb 13.3 g/dL (13.5-17.0) L 04/14/20 04:00 Hct 38.7 % (37.9-51.0) 04/14/20 04:00 MCV 93 fl (80-97) 04/14/20 04:00 MCH 31.9 pg (27.0-33.4) 04/14/20 04:00 MCHC 34.4 g/dL (32.0-36.0) 04/14/20 04:00 RDW 13.7 % (11.5-14.0) 04/14/20 04:00 Plt Count 249 10^3/uL (150-450) 04/14/20 04:00 Lymph % (Auto) 17.8 % (13-45) 04/12/20 04:25 Lake % (Auto) 9.5 % (3-13) 04/12/20 04:25 Eos % (Auto) 1.3 % (0-6) 04/12/20 04:25 Baso % (Auto) 0.5 % (0-2) 04/12/20 04:25 Absolute Neuts (auto) 8.5 10^3/uL (1.7-8.2) H 04/12/20 04:25 Absolute Lymphs (auto) 2.1 10^3/uL (0.5-4.7) 04/12/20 04:25 Absolute Monos (auto) 1.1 10^3/uL (0.1-1.4) 04/12/20 04:25 Absolute Eos (auto) 0.2 10^3/uL (0.0-0.6) 04/12/20 04:25 Absolute Basos (auto) 0.1 10^3/uL (0.0-0.2) 04/12/20 04:25 Seg Neutrophils % 70.9 % (42-78) 04/12/20 04:25 PT 15.3 SEC (11.4-15.4) 04/11/20 15:30 INR 1.20 04/11/20 15:30 VBG pH 7.26 (7.30-7.42) L 04/11/20 15:30 VBG pCO2 31.8 mmHg (35-63) L 04/11/20 15:30 VBG HCO3 13.8 mmol/L (20-32) L 04/11/20 15:30 VBG Base Excess -12.1 mmol/L 04/11/20 15:30 Sodium 137.6 mmol/L (137-145) 04/14/20 04:00 Potassium 4.5 mmol/L (3.6-5.0) 04/14/20 04:00 Chloride 111 mmol/L (98-107) H 04/14/20 04:00 Carbon Dioxide 19 mmol/L (22-30) L 04/14/20 04:00 Anion Gap 8 (5-19) 04/14/20 04:00 BUN 45 mg/dL (7-20) H 04/14/20 04:00 Creatinine 1.63 mg/dL (0.52-1.25) H 04/14/20 04:00 Est GFR ( Amer) 49 (>60) L 04/14/20 04:00 Est GFR (MDRD) Non-Af 40 (>60) L 04/14/20 04:00 Glucose 131 mg/dL (75-110) H 04/14/20 04:00 POC Glucose 128 mg/dL (70-110) H 04/14/20 09:28 Lactic Acid 1.2 mmol/L (0.7-2.1) 04/11/20 21:40 Calcium 9.3 mg/dL (8.4-10.2) 04/14/20 04:00 Magnesium 1.8 mg/dL (1.6-2.3) 04/12/20 04:25 Total Bilirubin 0.7 mg/dL (0.2-1.3) 04/12/20 04:25 Direct Bilirubin 0.0 mg/dL (0.0-0.4) 04/12/20 04:25 Neonat Total Bilirubin Not Reportable 04/12/20 04:25 Neonat Direct Bilirubin Not Reportable 04/12/20 04:25 Neonat Indirect Bili Not Reportable 04/12/20 04:25 AST 16 U/L (17-59) L 04/12/20 04:25 ALT 10 U/L (<50) 04/12/20 04:25 Alkaline Phosphatase 71 U/L (38-126) 04/12/20 04:25 Creatine Kinase 60 U/L (55-170) 04/11/20 15:30 CK-MB (CK-2) 2.37 ng/mL (<4.55) 04/11/20 15:30 Troponin I 0.072 ng/mL 04/11/20 21:40 Total Protein 7.0 g/dL (6.3-8.2) 04/12/20 04:25 Albumin 3.4 g/dL (3.5-5.0) L 04/12/20 04:25 TSH 2.40 uIU/mL (0.47-4.68) 04/11/20 21:40 Random Cortisol 7.71 ug/dL (None Established) 04/11/20 21:50 Urine Color RED 04/14/20 09:10 Urine Appearance CLOUDY 04/14/20 09:10 Urine pH 6.0 (5.0-9.0) 04/14/20 09:10 Ur Specific [place] 1.012 04/14/20 09:10 Urine Protein 100 mg/dL (NEGATIVE) H 04/14/20 09:10 Urine Glucose (UA) >=500 mg/dL (NEGATIVE) H 04/14/20 09:10 Urine Ketones NEGATIVE mg/dL (NEGATIVE) 04/14/20 09:10 Urine Blood MODERATE (NEGATIVE) H 04/14/20 09:10 Urine Nitrite NEGATIVE (NEGATIVE) 04/14/20 09:10 Urine Bilirubin NEGATIVE (NEGATIVE) 04/14/20 09:10 Urine Urobilinogen NEGATIVE mg/dL (<2.0) 04/14/20 09:10 Ur Leukocyte Esterase TRACE (NEGATIVE) H 04/14/20 09:10 Urine WBC (Auto) >182 /HPF 04/11/20 18:10 Urine RBC (Auto) >182 /HPF 04/11/20 18:10 Urine RBC TOO NUMEROUS TO CNT /HPF 04/14/20 09:10 Urine WBC 10-20 /HPF 04/14/20 09:10 Urine WBC Clumps MANY /HPF 04/11/20 18:10 U Non-Squamous Epis Auto 5 /HPF 04/11/20 18:10 Urine Bacteria 2+ /HPF 04/14/20 09:10 Urine Ascorbic Acid NEGATIVE (NEGATIVE) 04/14/20 09:10 Stool for White Cells NO WBCs SEEN 04/11/20 22:00 Stl C. Difficile GDH Ag NEGATIVE (NEGATIVE) 04/11/20 22:00 Stl C.difficile Tox A&B NEGATIVE (NEGATIVE) 04/11/20 22:00 Serum Alcohol < 10 mg/dL (NONE DETECTED) 04/11/20 15:30 04/11/20 04/11/20 15:30 21:40 CK-MB (CK-2) 2.37 Troponin I 0.075 0.072 Impressions: Chest X-Ray 04/11/20 15:47 IMPRESSION: No acute findings identified.Expiratory lung volumes. Abdomen/Pelvis CT 04/11/20 17:34 IMPRESSION: Mild thickening of the bladder wall.Minimal bilateral hydronephrosis - hydroureter. No calcified ureteral stones identified. The bilateral calcified nephrolithiasis. 1.4 cm nodule in the subpleural - anterior aspect of the right middle lobe. Mild basilar scarring -subsegmental atelectasis bilaterally. Plan Health Concerns: Worsening hematuria, clots. Plan of Treatment: Levoquin daily X 1 week. Follow up with Dr. David Haynes, urologist at same office May 18 at 1:15 PM. Goals: Relief of BPH Critical Time: 30 Level of Care: MEDICAL Stroke Is this a Stroke Patient?: No Acute Heart Failure - Is this a Heart Failure Patient?: No
[2020-04-14 12:32] VITALS: BP 126/56
== END 2020-04-14 15:30 | disposition home or self-care (01) | DRG 872 ==
LOC: ER 15:13 → EH 17:54 → ICU 20:11
PROVIDERS: ADMIT Internal Medicine Critical Care Medicine; ATTEND Internal Medicine Critical Care Medicine
DX: A41.9 Sepsis, unspecified organism (principal); N17.9 Acute kidney failure, unspecified; E27.40 Unspecified adrenocortical insufficiency; N13.8 Other obstructive and reflux uropathy; E87.2 Acidosis; E87.5 Hyperkalemia; R65.20 Severe sepsis without septic shock; R19.7 Diarrhea, unspecified; I45.10 Unspecified right bundle-branch block; N40.1 Benign prostatic hyperplasia with lower urinary tract symptoms; Z66 Do not resuscitate; E11.9 Type 2 diabetes mellitus without complications; I10 Essential (primary) hypertension; E03.9 Hypothyroidism, unspecified; I25.10 Atherosclerotic heart disease of native coronary artery without angina pectoris; W01.0XXA Fall on same level from slipping, tripping and stumbling without subsequent striking against object, initial encounter; E66.9 Obesity, unspecified; I95.1 Orthostatic hypotension; Z96.652 Presence of left artificial knee joint; Z79.899 Other long term (current) drug therapy; Z79.82 Long term (current) use of aspirin; Z86.711 Personal history of pulmonary embolism; Z95.1 Presence of aortocoronary bypass graft
CPT/HCPCS: 36415; 71045; 74176; 80048; 80053; 80307; 81001; 82533; 82550; 82553; 82803; 82962; 83605; 83735; 84443; 84484; 85025; 85027; 85610; 87040; 87045; 87070; 87077; 87086; 87150; 87177; 87186; 87205; 87324; 87449; 89055; 93005; 93010; 96365; 96367; 96368; 99291; 99292; J0610; J0692; J0696; J1815; J3370; J3490; J7030; J7060